=== PATIENT | male | born 1985 | race Caucasian/White ===

== ENCOUNTER 2016-09-22 18:57 | Emergency (ER) | payer MEDICAID, OTHER ==
[~2016-09-22] VITALS: Ht 177.8 cm; Wt 76.0 kg
[2016-09-22 19:03] VITALS: Ht 177.8 cm; Wt 76.0 kg
[2016-09-22] MEDS ORDERED: KETOROLAC 30 MG INJ IV STA (19:30)
[2016-09-22] MEDS ORDERED: ONDANSETRON 4 MG INJ IV STA (19:30)
[2016-09-22] MEDS ORDERED: SOD CHLORIDE 0.9% 1,000 ML IV STA (19:30)
[2016-09-22] MEDS ORDERED: ONDA8TAB14 PO (19:57)
[2016-09-22] MEDS ORDERED: IBUP-1542 PO (19:57)
[2016-09-22] MEDS ORDERED: ACETAMINOPHEN 325 MG TAB PO ONE (20:00)
--- NOTE | 2016-09-22 20:00 | ERD ---
ER Documentation Chief Complaint Date/Time DATE: 09/22/16 TIME: 19:58 Chief Complaint body achwes and fever since last night HPI This 31-year-old male presents with body aches and fever and vomiting started yesterday. The vomit is nonbilious nonbloody. He has mild generalized abdominal pain mostly in the epigastric area. He has low back pain radiating to his legs as well. Patient denies any foreign travel or suspect food or sick contacts. The vomit is nonbilious nonbloody. ROS All systems reviewed and are negative except as per history of present illness. Medications Home Meds Active Scripts Ondansetron (Ondansetron Odt) 8 Mg Tab.rapdis, 8 MG PO Q6H Y for NAUSEA AND/OR VOMITING, #10 TAB Prov:CARLOS ALBERTO LAY MD 09/22/16 Ibuprofen* (Motrin*) 600 Mg Tab, 600 MG PO Q6, #20 TAB Prov:CARLOS ALBERTO LAY MD 09/22/16 Allergies Allergies: Coded Allergies: Penicillins (Verified Allergy, Unknown, 07/20/14) PMhx/Soc Medical and Surgical Hx: pt denies Medical Hx, pt denies Surgical Hx History of Surgery: No Anesthesia Reaction: No Hx Neurological Disorder: No Hx Respiratory Disorders: No Hx Cardiac Disorders: No Hx Psychiatric Problems: No Hx Miscellaneous Medical Probl: No Hx Alcohol Use: Yes (Social ) Hx Substance Use: Yes (THC 2 wks ago) Hx Tobacco Use: Yes Smoking Status: Current every day smoker Physical Exam Vitals Vital Signs Date Time Temp Pulse Resp B/P Pulse Ox O2 Delivery O2 Flow Rate FiO2 09/22/16 19:03 99.7 111 20 155/79 99 Physical Exam Const: [] Alert, uncomfortable with active retching. Head: Atraumatic Eyes: Normal Conjunctiva ENT: Normal External Ears, Nose and Mouth. Neck: Full range of motion..~ No meningismus. Resp: Clear to auscultation bilaterally Cardio: Regular rate and rhythm, no murmurs Abd: Mild generalized guarding without rebound or localized tenderness., non distended. Normal bowel sounds Skin: No petechiae or rashes Back: No midline or flank tenderness Ext: No cyanosis, or edema Neur: Awake and alert Psych: Normal Mood and Affect Results 24 hrs Current Medications Medications (Trade) Dose Ordered Sig/Ana Route PRN Reason Start Time Stop Time Status Last Admin Dose Admin Sodium Chloride (NS) 1,000 ml @ 1,000 mls/hr Q1H STAT IV 09/22/16 19:30 09/22/16 20:29 Ondansetron HCl (Zofran Inj) 4 mg ONCE STAT IV 09/22/16 19:30 09/22/16 19:31 DC Ketorolac Tromethamine (Toradol) 30 mg ONCE STAT IV 09/22/16 19:30 09/22/16 19:31 DC Acetaminophen (Tylenol Tab) 650 mg ONCE ONCE PO 09/22/16 20:00 09/22/16 20:01 Procedures/MDM Patient presents with body aches and fever and vomiting of uncertain etiology for 1 day. IV was obtained CBC and CMP and lipase are pending. Urine is also pending. He will be administered Toradol 30 mg IV, Zofran 4 mg IV and 1 L normal saline. Results and further evaluation management will be signed out to Dr. montilla for serial exam and review of laboratories and further evaluation is necessary. Patient signs and symptoms suggestive of acute gastroenteritis or viral illness Further treatment will be pending laboratory studies however. Departure Diagnosis: Primary Impression: Vomiting Vomiting type: unspecified Vomiting Intractability: unspecified Nausea presence: unspecified Qualified Code: R11.10 - Vomiting, intractability of vomiting not specified, presence of nausea not specified, unspecified vomiting type Additional Impressions: Fever Fever type: unspecified Qualified Code: R50.9 - Fever, unspecified fever cause Abdominal pain Abdominal location: unspecified location Qualified Code: R10.9 - Abdominal pain, unspecified location Condition: Stable Patient Instructions: Fever Control (Adult), Vomiting (6Y-Adult) Additional Instructions: Likely viral illness may last a week. Recheck for new or worsening symptoms with primary care doctor. Drink plenty of fluids at home. CARLOS ALBERTO LAY MD September 22, 2016 20:00
[2016-09-22 20:21] LABS: ADD SCAN DIFF NO
[2016-09-22 20:23] LABS: BASOPHILS % 0.3 % (0.0-2.0); EOSINOPHILS # 0.1 10^3/ul (0.0-0.5); EOSINOPHILS % 0.9 % (0.0-7.0); HEMOGLOBIN 16.6 g/dl (14.0-18.0); LYMPHOCYTES # 3.2 10^3/ul (0.8-2.9); LYMPHOCYTES % 21.1 % (15.0-51.0); MEAN CORPUSCULAR HEMOGLOBIN 31.4 pg (29.0-33.0); MEAN CORPUSCULAR HGB CONC 36.1 g/dl (32.0-37.0); MEAN PLATELET VOLUME 10.7 fl (7.4-10.4); MONOCYTE # 0.6 10^3/ul (0.3-0.9); MONOCYTES % 3.6 % (0.0-11.0); NEUTROPHIL # 11.1 10^3/ul (1.6-7.5); NEUTROPHILS % 73.8 % (39.0-77.0); PLATELET COUNT 308 10^3/UL (140-415); RED BLOOD COUNT 5.29 10^6/ul (4.70-6.10); RED CELL DISTRIBUTION WIDTH 11.8 % (11.5-14.5); WHITE BLOOD COUNT 15.1 10^3/ul (4.8-10.8)
[2016-09-22 20:57] LABS: ALBUMIN 5.1 g/dl (3.3-4.9)
[2016-09-22 20:58] LABS: POTASSIUM 3.5 mmol/L (3.5-5.1)
[2016-09-22 21:00] LABS: ALBUMIN/GLOBULIN RATIO 1.7; CREATININE 0.9 mg/dl (0.61-1.24); TOTAL PROTEIN 8.1 g/dl (6.1-8.1)
[2016-09-22 21:32] LABS: ADD UMIC YES; URINE BILIRUBIN (Dip) NEGATIVE (NEGATIVE); URINE BLOOD (Dip) NEGATIVE (NEGATIVE); URINE COLOR YELLOW (YELLOW); URINE GLUCOSE (Dip) NEGATIVE (NEGATIVE); URINE KETONES (Dip) 15 (NEGATIVE); URINE LEUKOCYTE ESTERASE (Dip) NEGATIVE (NEGATIVE); URINE NITRITE (Dip) NEGATIVE (NEGATIVE); URINE TOTAL PROTEIN (Dip) TRACE (NEGATIVE); URINE UROBILINOGEN (Dip) 1.0 E.U./dL (0.1-1.0)
[2016-09-22 21:42] LABS: BACTERIA,URINE FEW; MUCUS,URINE FEW; SQUAMOUS EPITHELIAL CELL,UR FEW; URINE RBCS 0-2 /HPF (0)
[2016-09-22 21:56] VITALS: BP 146/75; PULSE 72; RESP 18; TEMP 97.9
== END 2016-09-22 21:58 | disposition home or self-care (01) ==
LOC: FTE 18:57
DX: R11.10 Vomiting, unspecified (principal); R50.9 Fever, unspecified; R10.84 Generalized abdominal pain; F17.210 Nicotine dependence, cigarettes, uncomplicated
CPT/HCPCS: 36415; 80053; 81001; 83690; 85025; 96374; 96375; J1885; J2405; J7030; Z7502; Z7610; 81003